=== PATIENT | female | born 1975 | race Hispanic/Latino ===

== ENCOUNTER 2018-12-18 18:41 | Emergency (ER) | payer OTHER ==
[~2018-12-18] VITALS: Ht 160 cm; Wt 72.0 kg
[2018-12-18 20:30] VITALS: BP 104/72
[2018-12-18] MEDS ORDERED: IBUPROFEN600 MG PO (20:40)
== END 2018-12-18 20:48 | disposition home or self-care (01) | DRG 552 ==
LOC: ED 18:41
DX: S16.1XXA Strain of muscle, fascia and tendon at neck level, initial encounter (principal); V44.5XXA Car driver injured in collision with heavy transport vehicle or bus in traffic accident, initial encounter